=== PATIENT | female | born 1960 | race Caucasian/White ===

== ENCOUNTER 2020-12-18 18:23 | Inpatient (IN) | payer OTHER ==
[~2020-12-18] VITALS: Ht 157.5 cm; Wt 49.4 kg
[2020-12-18 19:21] LABS: HEMOGLOBIN 13.2 gm/dl (12.3-15.3); RED BLOOD COUNT 4.56 M/UL (4.00-5.10); WHITE BLOOD COUNT 5.6 K/UL (4.5-11.0)
[2020-12-18 19:53] LABS: BUN/CREATININE RATIO 20 (0-10)
[2020-12-19] MEDS ORDERED: B-COMPLEX WITH1 EAC1 PO (08:38)
[2020-12-19 20:06] LABS: BUN/CREATININE RATIO 37 (0-10)
[2020-12-20 02:46] LABS: HEMOGLOBIN 12.7 gm/dl (12.3-15.3); RED BLOOD COUNT 4.39 M/UL (4.00-5.10); WHITE BLOOD COUNT 5.3 K/UL (4.5-11.0)
[2020-12-20 03:17] LABS: BUN/CREATININE RATIO 42 (0-10)
[2020-12-20 08:13] LABS: THYROID PEROXIDASE (TPO) AB >600 IU/mL (0-34)
[2020-12-21 02:58] LABS: HEMOGLOBIN 13.4 gm/dl (12.3-15.3); RED BLOOD COUNT 4.65 M/UL (4.00-5.10)
[2020-12-21 02:59] LABS: WHITE BLOOD COUNT 7.9 K/UL (4.5-11.0)
[2020-12-21 03:28] LABS: BUN/CREATININE RATIO 64 (0-10)
[2020-12-22 07:00] LABS: HEMOGLOBIN 12.8 gm/dl (12.3-15.3); RED BLOOD COUNT 4.46 M/UL (4.00-5.10); WHITE BLOOD COUNT 7.6 K/UL (4.5-11.0)
[2020-12-22 07:21] LABS: BUN/CREATININE RATIO 60 (0-10)
[2020-12-22 15:09] LABS: THYROGLOBULIN ANTIBODY 263.7 IU/mL (0.0-0.9)
[2020-12-23 03:31] LABS: HEMOGLOBIN 12.5 gm/dl (12.3-15.3); RED BLOOD COUNT 4.33 M/UL (4.00-5.10)
[2020-12-23 03:38] LABS: WHITE BLOOD COUNT 9.9 K/UL (4.5-11.0)
[2020-12-23 03:47] LABS: BUN/CREATININE RATIO 48 (0-10)
[2020-12-23] MEDS ORDERED: SYMBICORT 16010.2 GM INH (10:36)
[2020-12-23] MEDS ORDERED: ELIQUIS 5 MG TAB5 MG PO (10:36)
[2020-12-23] MEDS ORDERED: TAPAZOLE5 MG PO (10:36)
[2020-12-23] MEDS ORDERED: ASPIRIN EC81 MG PO (10:36)
[2020-12-23] MEDS ORDERED: DIGOXIN125 MCG PO (10:36)
[2020-12-23] MEDS ORDERED: [UNRECOGNIZED DRUG - OTHER] PO (10:36)
[2020-12-23] MEDS ORDERED: FUROSEMIDE20 MG PO (10:36)
[2020-12-23] MEDS ORDERED: VENTOLIN HFA 66.7 GM INH (10:36)
[2020-12-23] MEDS ORDERED: LOPRESSOR 50 MG50 MG PO (10:36)
[2020-12-23] MEDS ORDERED: COZAAR 50MG TAB50 MG PO (10:36)
[2020-12-23] MEDS ORDERED: QUESTRAN LIGHT 44 GM PO (10:36)
[2020-12-23] MEDS ORDERED: HYDROCORTISONE20 MG PO (10:36)
[2020-12-23] MEDS ORDERED: ALPRAZOLAM0.5 MG PO (10:36)
== END 2020-12-23 13:45 | disposition home or self-care (01) | DRG 643 ==
LOC: ER1 18:23 → CDU 21:18 → PROG CARE 21:18
PROVIDERS: Family Medicine; Internal Medicine; ADMIT Family Medicine
PROC: B24BZZ4 Ultrasonography of Heart with Aorta, Transesophageal (ICD-10-PCS; principal; 2020-12-19)
DX: E05.01 Thyrotoxicosis with diffuse goiter with thyrotoxic crisis or storm (principal); I50.23 Acute on chronic systolic (congestive) heart failure; I42.8 Other cardiomyopathies; I11.0 Hypertensive heart disease with heart failure; I48.91 Unspecified atrial fibrillation; J44.9 Chronic obstructive pulmonary disease, unspecified; I08.3 Combined rheumatic disorders of mitral, aortic and tricuspid valves; D69.6 Thrombocytopenia, unspecified; I45.10 Unspecified right bundle-branch block; Z20.822 Contact with and (suspected) exposure to COVID-19; F17.210 Nicotine dependence, cigarettes, uncomplicated; Z79.01 Long term (current) use of anticoagulants; Z79.82 Long term (current) use of aspirin; Z82.3 Family history of stroke; Z82.49 Family history of ischemic heart disease and other diseases of the circulatory system
CPT/HCPCS: ECHO; 36415; 51702; 70490; 71045; 71250; 78452; 80048; 80053; 80061; 82550; 82553; 83036; 83520; 83735; 83874; 83880; 84100; 84439; 84443; 84481; 84484; 85025; 86140; 86376; 86800; 93005; 93017; 93306; 94640; 94664; 94760; 96374; 99285; A9502; J1650; J1720; J1940; J2405; J2785; U0002

== ENCOUNTER 2021-03-04 16:43 | Emergency (ER) | payer OTHER ==
[~2021-03-04 16:43] MED LIST: ALPRAZOLAM0.5 MG PO; ASPIRIN EC81 MG PO; B-COMPLEX WITH1 EAC1 PO; COZAAR 50MG TAB50 MG PO; DIGOXIN125 MCG PO; ELIQUIS 5 MG TAB5 MG PO; FUROSEMIDE20 MG PO; HYDROCORTISONE20 MG PO; LOPRESSOR 50 MG50 MG PO; QUESTRAN LIGHT 44 GM PO; SYMBICORT 16010.2 GM INH; TAPAZOLE5 MG PO; VENTOLIN HFA 66.7 GM INH; [UNRECOGNIZED DRUG - OTHER] PO
== END 2021-03-04 17:36 | disposition home or self-care (01) ==
LOC: ER1 16:43
DX: R00.1 Bradycardia, unspecified (principal); F17.200 Nicotine dependence, unspecified, uncomplicated; I10 Essential (primary) hypertension; E07.89 Other specified disorders of thyroid; E05.90 Thyrotoxicosis, unspecified without thyrotoxic crisis or storm
CPT/HCPCS: 93005; 99284

== ENCOUNTER 2021-10-22 19:24 | Observation (INO) | payer OTHER ==
[~2021-10-22] VITALS: Ht 157.5 cm; Wt 47.2 kg
[2021-10-22 21:10] LABS: HEMOGLOBIN 15.8 gm/dl (12.3-15.3); RED BLOOD COUNT 4.54 M/UL (4.00-5.10); WHITE BLOOD COUNT 9.6 K/UL (4.5-11.0)
[2021-10-23] MEDS ORDERED: LOPRESSOR 50 MG50 MG PO (11:39)
[2021-10-23] MEDS ORDERED: LASIX20 MG PO (12:52)
[2021-10-23] MEDS ORDERED: METHIMAZOLE5 MG PO (12:54)
[2021-10-23] MEDS ORDERED: CALCIUM 600 +1 EAC3 PO (12:55)
[2021-10-23] MEDS ORDERED: HYDROCODON-ACE1 EAC2 PO (13:08)
== END 2021-10-23 17:00 | disposition home or self-care (01) ==
LOC: ER1 19:24 → M/S 10-23 02:28 → CDU 10-23 02:28 → M/S 10-23 03:09
PROVIDERS: Physician Assistant; ADMIT Surgery
DX: K41.30 Unilateral femoral hernia, with obstruction, without gangrene, not specified as recurrent (principal); K40.30 Unilateral inguinal hernia, with obstruction, without gangrene, not specified as recurrent; I48.91 Unspecified atrial fibrillation; E05.90 Thyrotoxicosis, unspecified without thyrotoxic crisis or storm; R18.8 Other ascites; Z20.822 Contact with and (suspected) exposure to COVID-19; Z23 Encounter for immunization
CPT/HCPCS: 80053; 81001; 83605; 83690; 85025; 87086; 93005; 96374; 96375; 99285; C1781; G0378; J0690; J1100; J1885; J2001; J2270; J2405; J2704; J3010; J7030; J7120; Q9967; U0002